=== PATIENT | male | born 2000 | race Caucasian/White ===

== ENCOUNTER 2021-05-01 18:56 | Observation (INO) | payer OTHER ==
[2021-05-01] MEDS ORDERED: Sodium Chloride 0.9% 1,000 ML IV ONE (19:27)
[2021-05-01] MEDS ORDERED: Sodium Chloride 0.9% 2.5 ML Syringe FLUSH PRN ×2 (19:27→22:31)
[2021-05-01] MEDS ORDERED: Ondansetron 4 MG/2 ML SDV IVPUSH ONE (19:27)
[2021-05-01] MEDS ORDERED: fentaNYL 50 MCG/ML SDV IVPUSH ONE (19:27)
[2021-05-01] MEDS ORDERED: Sodium Chloride 0.9% 10 ML Syringe FLUSH PRN ×2 (19:27→22:31)
[2021-05-01] MEDS ORDERED: Piperacillin/Tazobactam 3.375 GM in Sodium Chloride 0.9% 50 ML IV ONE (19:29)
[2021-05-01] MEDS ORDERED: fentaNYL 50 MCG/ML SDV ONE (20:08)
[2021-05-01 20:12] LABS: BLOOD UREA NITROGEN,BUN 14 mg/dL (7.0-18.0); CARBON DIOXIDE,CO2 22.4 mmol/L (21.0-32.0); CHLORIDE,CL 97 mmol/L (98-107); ESTIMATED GFR > 60.0 ml/min; GLUCOSE RANDOM 105 mg/dL (74-106); POTASSIUM,K 4.2 mmol/L (3.5-5.1); SODIUM,NA 134 mmol/L (136-148)
[2021-05-01] MEDS ORDERED: Iopamidol 755 MG/ML 500 ML Multipack Bottle IVPUSH STA (20:36)
[2021-05-01] MEDS ORDERED: Lactated Ringers 1,000 ML IV ONE (21:49)
[2021-05-01] MEDS ORDERED: Sodium Chloride 0.9% 20 ML SDV IV PRN (22:31)
[2021-05-01] MEDS ORDERED: HYDROmorphone 2 MG/ML Syringe IVPUSH PRN (22:31)
[2021-05-01] MEDS ORDERED: Lactated Ringers 1,000 ML IV SCH (22:45)
[2021-05-02] MEDS: Acetaminophen 1,000 MG in Premix Bag 1 BAG IV SCH ×2 (00:26→04:34)
[2021-05-02] MEDS: Ketorolac 30 MG/ML SDV IVPUSH SCH ×4 (00:26→16:17)
[2021-05-02] MEDS ORDERED: Piperacillin/Tazobactam 3.375 GM in Sodium Chloride 0.9% 50 ML IV SCH (02:00)
[2021-05-02] MEDS ORDERED: Propofol 200 MG/20 ML SDV ONE (06:28)
[2021-05-02] MEDS ORDERED: Bupivacaine 0.5% 30 ML SDV ONE (06:28)
[2021-05-02] MEDS ORDERED: fentaNYL 250 MCG/5 ML SDV ONE (06:28)
[2021-05-02] MEDS ORDERED: Octyl 2-Cyanoacrylate 1 Tube ONE (06:29)
[2021-05-02] MEDS ORDERED: Ketamine HCL/NACL, ISO-OSM 50 MG/5 ML Syringe ONE (07:01)
[2021-05-02] MEDS ORDERED: Metoclopramide 10 MG/2 ML SDV IVPUSH PRN (07:25)
[2021-05-02] MEDS ORDERED: Naloxone 0.4 MG/ML SDV IVPUSH PRN (07:25)
[2021-05-02] MEDS ORDERED: Morphine 2 MG/ML SYRINGE IVPUSH PRN (07:25)
[2021-05-02] MEDS ORDERED: Ondansetron 4 MG/2 ML SDV IVPUSH PRN (07:25)
[2021-05-02] MEDS ORDERED: HYDROmorphone 1 MG/ML Syringe IVPUSH PRN (07:25)
[2021-05-02] MEDS ORDERED: Albuterol 0.083% 2.5 MG/3 ML Neb Soln NEB PRN (07:25)
[2021-05-02] MEDS ORDERED: fentaNYL 100 MCG/2 ML SDV IVPUSH PRN (07:25)
[2021-05-02] MEDS ORDERED: Dexamethasone 4 MG/ML 5 ML MDV ONE (07:28)
[2021-05-02] MEDS ORDERED: Sugammadex Sodium 200 MG/2 ML VIAL ONE (07:28)
[2021-05-02] MEDS ORDERED: Rocuronium Bromide 50 MG/5 ML Syringe ONE (07:28)
[2021-05-02] MEDS ORDERED: ceFAZolin 1 GM Vial ONE (07:29)
[2021-05-02] MEDS ORDERED: Piperacillin/Tazobactam 3.375 GM in Sodium Chloride 0.9% 50 ML IV ONE (07:50)
[2021-05-02] MEDS ORDERED: HYDROmorphone 2 MG/ML Syringe ONE (07:53)
[2021-05-02] MEDS ORDERED: Acetaminophen/oxyCODONE 325-5 MG Tab PO PRN (08:21)
[2021-05-02] MEDS ORDERED: Lidocaine 2% Jelly 30 ML Tube ONE (08:27)
[2021-05-02] MEDS: Piperacillin/Tazobactam 3.375 GM in Sodium Chloride 0.9% 50 ML IV SCH ×2 (13:57→22:49)
[2021-05-03] MEDS: Piperacillin/Tazobactam 3.375 GM in Sodium Chloride 0.9% 50 ML IV SCH ×2 (05:13→10:42)
[2021-05-03] MEDS ORDERED: metroNIDAZOLE 250 MG Tab PO SCH (09:00)
[2021-05-03] MEDS ORDERED: Piperacillin/Tazobactam 3.375 GM in Sodium Chloride 0.9% 50 ML IV SCH (11:00)
[2021-05-03] MEDS ORDERED: Ciprofloxacin 500 MG Tab PO SCH (21:00)
== END 2021-05-03 10:50 | disposition home or self-care (01) ==
LOC: MW.ED 18:56 → MW.MS 21:44
PROVIDERS: ADMIT Surgery; ATTEND Surgery
DX: K35.31 Acute appendicitis with localized peritonitis and gangrene, without perforation (principal); K35.33 Acute appendicitis with perforation, localized peritonitis, and gangrene, with abscess; Z79.899 Other long term (current) drug therapy; Z01.812 Encounter for preprocedural laboratory examination; Z20.822 Contact with and (suspected) exposure to COVID-19
CPT/HCPCS: 00840; 36415; 74177; 74177-26; 80053; 81001; 83690; 85025; 87040; 96365; 96366; 96375; 96376; 99285; 99285-25; A9270-GY; G0378; J0131; J0330; J0690; J1100; J1170; J1885; J2405; J2543; J2704; J3010; J3490; J7030; J7120; Q9967; U0002